=== PATIENT | female | born 1995 | race Caucasian/White ===

== ENCOUNTER 2021-12-05 11:01 | Emergency (ER) | payer BC ==
[~2021-12-05] VITALS: Ht 182.9 cm; Wt 81.8 kg
[2021-12-05 11:14] VITALS: TEMP 97.9
[2021-12-05] MEDS ORDERED: ZOFRAN ODT4 MG PO (11:19)
[2021-12-05] MEDS ORDERED: PRENATAL TABLET PO (11:19)
[2021-12-05 13:26] VITALS: BP 113/71; PULSE 80
== END 2021-12-05 13:31 | disposition home or self-care (01) ==
LOC: COL.ER 11:01
DX: O21.9 Vomiting of pregnancy, unspecified (principal); Z3A.13 13 weeks gestation of pregnancy
CPT/HCPCS: J2550; J7030